=== PATIENT | male | born 1955 | race Caucasian/White ===

== ENCOUNTER 2022-03-18 18:49 | Emergency (ER) | payer BC, SELFPAY ==
--- NOTE | ~2022-03-18 | XR_ITS ---
XR foot RT min 3V 03/18/2022 19:38 INDICATION: Erythematous second toe. PROCEDURE: 4 views right foot COMPARISON: No prior studies for comparison. FINDINGS: Fracture, dislocation or subluxation is not identified. There is a degenerative calcaneal e nthesophyte. There is soft tissue swelling of the second toe. No foreign bodies are identified. IMPRESSION: 1: NO ACUTE BONE OR JOINT ABNORMALITY IDENTIFIED. Reviewed, dictated and finalized at location A.
[2022-03-18 18:51] VITALS: BP 157/112; PULSE 112; RESP 18; TEMP 36.5; O2SAT 99
--- NOTE | 2022-03-18 19:19 | ED.LOWEXIN ---
HPI - Extremity Injury (Lower) General Chief Complaint: Extremity Injury, Lower Stated Complaint: sore toe Time Seen by Provider: 03/18/22 18:52 History of Present Illness HPI Narrative: 66-year-old male history of diabetes presents to the emergency room for evaluation of a red swollen toe to his left foot. Patient states that he had a scab to the tip of his toe, and his attempted to remove it with a pumice stone. This created a small wound and noticed redness and pain to the tip of the toe this morning. He states over the course of the day the entire toe became red and swollen and painful. Patient states concern for diabetic toe. Has a follow-up scheduled with the director physical therapy next week. Related Data Allergies Allergy/AdvReac Type Severity Reaction Status Date / Time tizanidine Allergy Severe DROPPED BP Verified 06/06/19 08:56 Review of Systems Review of Systems: CONSTITUTIONAL: Denies fever, chills, or sweats. EYES: Denies visual changes, redness, or discharge. ENT: Denies rhinorrhea, congestion, sore throat, or otalgia. CARDIOVASCULAR: Denies chest pain, palpitations, or edema. RESPIRATORY: Denies cough or dyspnea. GASTROINTESTINAL: Denies abdominal pain, nausea, vomiting, or diarrhea. GENITOURINARY: Denies dysuria or hematuria. SKIN: Swelling, erythema, tenderness to left second toe MUSCULOSKELETAL: Denies back pain, joint pain, or myalgia. NEUROLOGIC: Denies headache, numbness, dizziness, or weakness. PSYCHIATRIC: Denies anxiety or depression. [facility] Family History Family History Father Family history of congestive heart failure Other Cerebrovascular accident Diabetes mellitus Social History Social History Smoking status: Never smoker Alcohol intake: current Exam Narrative: GENERAL: Well-appearing, well-nourished, no physical limitations, and in no acute distress. HEAD: Normocephalic, atraumatic. EYES: Conjunctivae normal, PERRLA and EOMI. CHEST: Clear to auscultation. No respiratory distress. No wheezes rales or rhonchi. No tenderness. HEART: Regular rate and rhythm. No murmur heard. Normal peripheral pulses. EXTREMITIES: Normal range of motion. No edema. No clubbing or cyanosis SKIN: Left second toe: Erythema, swelling, tenderness to touch to the entire toe. Neurovascular is intact NEURO: No focal deficits. Alert and oriented x3. MAEW. CN's II-XI intact bilaterally, normal gait PSYCH: Cooperative. Normal mood and affect. Course Vital Signs Vital signs: Vital Signs Temperature 36.5 C 03/18/22 18:51 Pulse Rate 112 H 03/18/22 18:51 Respiratory Rate 18 03/18/22 18:51 Blood Pressure 157/112 H 03/18/22 18:51 Pulse Oximetry 99 03/18/22 18:51 Oxygen Delivery Room Air 03/18/22 18:51 Temperature 36.5 C 03/18/22 18:51 Pulse Rate 82 03/18/22 20:30 Respiratory Rate 16 03/18/22 20:30 Blood Pressure 149/98 H 03/18/22 20:30 Pulse Oximetry 97 03/18/22 20:30 Oxygen Delivery Room Air 03/18/22 18:51 MDM - Extremity Injury (Lower) Lab Data Attestation: I reviewed the patient's lab results. Result diagrams: 03/18/22 19:28 03/18/22 19:28 Labs: Lab Results 03/18/22 03/18/22 03/18/22 Range/Units 19:28 19:28 19:28 WBC 7.6 (4.5-10.0) K/mm3 RBC 4.52 L (4.6-6.20) M/mm3 Hgb 12.4 L (14.0-18.0) g/dL Hct 37.5 L (42.0-52.0) % MCV 83.0 (80-100) fl MCH 27.4 (26-34) pg MCHC 33.1 (32-36) g/dl RDW 14.6 H (11.5-14.5) % Plt Count 251 (150-375) k/mm3 MPV 8.5 (7.4-10.4) fl Immature Gran % (Auto) 0.3 (0-0.5) % Neut % (Auto) 74.7 H (45.5-73.1) % Lymph % (Auto) 14.6 L (18.3-44.2) % [place] % (Auto) 10.0 H (2.6-8.5) % Eos % (Auto) 0.0 (0-4.4) % Baso % (Auto) 0.4 (0.2-1.2) % Lymph # (Auto) 1.11 (0.9-3.2) K/mm3 [place] # (Auto) 0.8 H (0.1-0.6) K/mm3 Eos #
[2022-03-18 19:34] LABS: Basophils Percent Auto 0.4 % (0.2-1.2); Hematocrit 37.5 % (42.0-52.0); Hemoglobin 12.4 g/dL (14.0-18.0); Immature Granulocyte Absolute 0.02 K/mm3 (0.00-0.031); Immature Granulocyte Percent A 0.3 % (0-0.5); Lymphocytes Absolute Auto 1.11 K/mm3 (0.9-3.2); Lymphocytes Percent Auto 14.6 % (18.3-44.2); Mean Corpuscular HGB Conc 33.1 g/dl (32-36); Mean Corpuscular Hemoglobin 27.4 pg (26-34); Mean Platelet Volume 8.5 fl (7.4-10.4); Monocytes Absolute Auto 0.8 K/mm3 (0.1-0.6); Neutrophils Absolute Auto 5.7 K/mm3 (1.3-6.7); Neutrophils Percent Auto 74.7 % (45.5-73.1); Platelet Count Result 251 k/mm3 (150-375); Red Blood Count 4.52 M/mm3 (4.6-6.20); Red Cell Distribution Width 14.6 % (11.5-14.5); White Blood Count 7.6 K/mm3 (4.5-10.0)
[2022-03-18 19:46] LABS: Alanine Aminotransferase 34 U/L (6-50); Albumin Level 4.6 g/dL (3.5-5.1); Alkaline Phosphatase 45 U/L (38-126); Anion Gap 12 mmol/L (8-16); Aspartate Amino Transferase 28 U/L (17-59); Bilirubin,Total 0.4 mg/dL (0.2-1.3); Blood Urea Nitrogen 28 mg/dL (9-20); Calcium 9.9 mg/dL (8.4-10.2); Carbon Dioxide 22 mmol/L (22-30); Chloride 108 mmol/L (98-107); Estimated CRCL calculation 68 ml/min; Estimated Glomerular Filt Rate > 60; Glucose 177 mg/dL (65-110); Potassium 4.1 mmol/L (3.4-5.0); Sodium 142 mmol/L (137-145)
[2022-03-18 19:47] LABS: Lactic Acid Reflex 1.5 mmol/L (0.7-2.0)
[2022-03-18] MEDS: cefTRIAXone 1 GM VIAL (20:24)
[2022-03-18] MEDS: LIDOCAINE HCL 1% PF 30 ML VIAL (20:24)
[2022-03-18 20:30] VITALS: BP 149/98; PULSE 82; RESP 16; O2SAT 97
== END 2022-03-18 20:31 | disposition home or self-care (01) ==
PROVIDERS: Emergency Provider Nurse Practitioner Family
DX: E11.621 Type 2 diabetes mellitus with foot ulcer (principal); L97.529 Non-pressure chronic ulcer of other part of left foot with unspecified severity; Z79.82 Long term (current) use of aspirin; Z79.4 Long term (current) use of insulin; Z79.84 Long term (current) use of oral hypoglycemic drugs
CPT/HCPCS: 36415; 73630; 80053; 83605; 85025; 96374; 99284; J0696

== ENCOUNTER 2022-03-20 09:52 | Inpatient (IN) | payer BC, MEDICARE, SELFPAY ==
--- NOTE | ~2022-03-20 | US_ITS ---
EXAMINATION: US venous doppler LE RT DATE: 03/21/2022 08:52 INDICATION: asymmetric swelling of RLE > LLE , right foot wound. TECHNIQUE: Grayscale images without and with compression and Doppler images of the right lower extrem ity veins were obtained. COMPARISON: None FINDINGS: The right common femoral vein, profunda (deep) femoral vein, femoral vein, popliteal vein, peroneal v ein, posterior tibial veins, gastrocnemius vein, and greater saphenous vein are patent. IMPRESSION: 1. Patent right lower extremity veins. No evidence of deep venous thrombosis. Reviewed, dictated and finalized at location K.
--- NOTE | ~2022-03-20 | MR_ITS ---
EXAMINATION: MR foot RT wo/w con DATE: 03/21/2022 08:14 INDICATION: Osteomalacia the right second toe TECHNIQUE: Magnetic resonance imaging (MRI) of the right forefoot was performed following the injecti on of 20 mL MultiHance intravenous contrast. Sequences included axial sagittal and coronal T1 FSE, ax ial and sagittal T1 FSE FS, axial and coronal T2 FSE FS, sagittal STIR, and axial, sagittal, and maine nal postcontrast sequences. COMPARISON: Radiographs 03/20/2022. FINDINGS: There is considerable subcutaneous inflammation and enhancement about the distal aspect of the second toe. 3 x 4 mm fluid collection in the deep soft tissues immediately adjacent to cortical b one along the posterior medial aspect of the distal phalange. No periosteal thickening or elevation. Although the cortical line sign is present in the radiographs, there is only mild abnormal marrow sig nal/enhancement, usually indicative of reactive marrow change. IMPRESSION: 1. Osteitis of the right second distal phalange, without overt or extensive osteomyelitis. 2. 3 x 4 mm fluid collection/early abscess at the posterior medial aspect of the distal second phalan ge. 3. Cellulitis of the distal second toe. Reviewed, dictated and finalized at location K. IMPRESSION: 1. Osteitis of the right second distal phalange, without overt or extensive ost eomyelitis. 2. 3 x 4 mm fluid collection/early abscess at the posterior medial aspect of th e distal second phalange. 3. Cellulitis of the distal second toe.
--- NOTE | ~2022-03-20 | XR_ITS ---
XR chest PICC line 03/25/2022 09:40 Indication: PICC line placement. Procedure: AP portable chest Comparison: No prior studies for comparison. Findings: Right subclavian PICC line tip in the SVC. Heart size normal. No focal air space disease, p ulmonary edema, pleural effusion or suspected pneumothorax. There is a left shoulder arthroplasty. Th ere are surgical changes overlying the neck. Impression: 1: No acute cardiopulmonary disease. Reviewed, dictated and finalized at location L. Impression: 1: No acute cardiopulmonary disease.
--- NOTE | ~2022-03-20 | CT_ITS ---
EXAMINATION: CT abdomen pelvis wo/w con DATE: 03/24/2022 08:22 INDICATION: Left renal mass seen on prior ultrasound. TECHNIQUE: Computed tomography (CT) of the abdomen and pelvis was performed without and with 100 mL O mnipaque-300 intravenous contrast. Automated exposure control and iterative reconstruction technique were employed. The dose-length product was 1756.31 mGy-cm. COMPARISON: Ultrasound dated 03/23/[address] dated 07/15/2008 FINDINGS: Bronchiectasis associated with linear atelectasis/scarring in the right lower lobe. A couple small ca lcified nodules in the right lower lobe and scattered hepatic and splenic calcific lesions consistent with old granulomatous disease. Heart size is normal. No pericardial or pleural effusion. Small slid ing-type hiatal hernia. Gallbladder, pancreas and right adrenal gland are normal. 9 mm left adrenal n odule statistically most likely to represent an adenoma. Bilateral low-attenuation nonenhancing renal cysts, the largest on the right measuring up to 1.9 cm and on the left measuring up to 1.8 cm. The c yst in the left kidney appear to correspond to the lesion of concern on the prior ultrasound. There i s an additional 8 mm hyperdense proteinaceous/hemorrhagic cyst at the periphery of the left kidney. B owels including the appendix are normal. Bladder is normal. Prostatomegaly measuring 5.2 x 3.4 cm. No free intraperitoneal gas or fluid. No pathologically enlarged abdominal or pelvic lymphadenopathy. C hronic mild anterior wedging at T10 and T11. Mild lumbar and mild to moderate lower thoracic spondylo sis. IMPRESSION: 1. Bilateral renal cysts which account for the lesions of concern seen on prior ultrasound. Reviewed, dictated and finalized at location A.
--- NOTE | ~2022-03-20 | XR_ITS ---
XR toe 2nd RT min 2V DATE: 03/20/2022 10:50 INDICATION: Distal second toe soft tissue wound for 3 days TECHNIQUE: 4 views COMPARISON: 03/18/2022 right foot FINDINGS: There is prominent soft tissue swelling of the second digit. There is bone destruction of t he tuft of the distal phalanx likely due to osteomyelitis. Proximal and distal interphalangeal joint spaces are preserved. No fracture or dislocation, periosteal reaction or bone destruction is noted otherwise. IMPRESSION: Prominent soft tissue swelling of the second digit Bone destruction of the tuft of the distal phalanx suggesting osteomyelitis of distal phalanx Reviewed, dictated and finalized at location A.
--- NOTE | ~2022-03-20 | US_ITS ---
EXAMINATION: US retroperitoneal comp DATE: 03/23/2022 10:28 INDICATION: Elevated creatinine. TECHNIQUE: Multiple ultrasound grayscale images of the kidneys were obtained. COMPARISON: Abdomen MRI 07/23/2008 FINDINGS: The right kidney measures 12.5 x 5.8 x 5.6 cm. The left kidney measures 11.3 x 5.8 x 4.6 cm. The kidn eys demonstrate normal parenchymal echogenicity. There are 1.8 cm and 1.9 cm hypoechoic masses in lef t kidney. There is no hydronephrosis. The bladder is normal. IMPRESSION: 1. Normal kidney sizes. No hydronephrosis. 2. Two left kidney masses measuring up to 1.9 cm, most likely cysts. Neoplasm cannot be excluded. Abd omen CT without and with contrast is recommended. Reviewed, dictated and finalized at location A. IMPRESSION: 1. Normal kidney sizes. No hydronephrosis. 2. Two left kidney masses measuring up to 1.9 cm, most likely cysts. Neoplasm c annot be excluded. Abdomen CT without and with contrast is recommended.
--- NOTE | ~2022-03-20 | US_ITS ---
EXAMINATION: US art doppler w press LE BI DATE: 03/21/2022 08:50 INDICATION: Right foot wound TECHNIQUE: Segmental pressures and plethysmographic and Doppler waveforms of the brachial and lower e xtremity arteries were obtained. COMPARISON: None. FINDINGS: Right and left brachial artery pressures of 143 mm Hg and 150 mm Hg, respectively, are concordant (no rmal difference <= 30 mmHg). The right ankle-brachial index (JENNIE) is 0.96 (normal >= 0.9-1). The right great toe-brachial index (T BI) is 0.78 (normal >= 0.6-0.8). Arterial waveforms are biphasic with brisk systolic upstrokes throug hout the arteries of the right lower limb. The left JENNIE is 0.91. The left TBI is 0.62. Arterial waveforms are triphasic at the left superficial femoral artery and biphasic in the remaining arteries of the left lower limb with brisk systolic upst rokes throughout. IMPRESSION: 1. No significant arterial occlusive disease to the right lower limb with normal right JENNIE and TBI. 2. Borderline arterial occlusive disease to the left lower limb with left JENNIE and TBI at the lower li mits of normal. Reviewed, dictated and finalized at location A. IMPRESSION: 1. No significant arterial occlusive disease to the right lower limb with lluvia l right JENNIE and TBI. 2. Borderline arterial occlusive disease to the left lower limb with left JENNIE a nd TBI at the lower limits of normal.
[2022-03-20 09:56] VITALS: BP 153/57; PULSE 112; RESP 16; TEMP 36.5; O2SAT 99
[2022-03-20 11:08] LABS: Basophils Percent Auto 0.2 % (0.2-1.2); Hematocrit 36.7 % (42.0-52.0); Hemoglobin 11.9 g/dL (14.0-18.0); Immature Granulocyte Absolute 0.02 K/mm3 (0.00-0.031); Immature Granulocyte Percent A 0.2 % (0-0.5); Lymphocytes Absolute Auto 0.86 K/mm3 (0.9-3.2); Lymphocytes Percent Auto 10.7 % (18.3-44.2); Mean Corpuscular HGB Conc 32.4 g/dl (32-36); Mean Corpuscular Hemoglobin 27.4 pg (26-34); Mean Corpuscular Volume 84.4 fl (80-100); Mean Platelet Volume 8.8 fl (7.4-10.4); Monocytes Absolute Auto 0.7 K/mm3 (0.1-0.6); Monocytes Percent Auto 8.8 % (2.6-8.5); Neutrophils Absolute Auto 6.4 K/mm3 (1.3-6.7); Neutrophils Percent Auto 80.1 % (45.5-73.1); Platelet Count Result 239 k/mm3 (150-375); Red Blood Count 4.35 M/mm3 (4.6-6.20); Red Cell Distribution Width 14.5 % (11.5-14.5); White Blood Count 8.1 K/mm3 (4.5-10.0)
--- NOTE | 2022-03-20 11:16 | ED.WOUNDLAC ---
HPI - Wound/Laceration General Chief Complaint: Wound/Laceration <Neha Bell PA-C - Last Filed: 03/20/22 13:01> Stated Complaint: R FOOT DIABETIC ULCER <SANJU Trujillo Last Filed: 03/20/22 13:01> Time Seen by Provider: 03/20/22 10:37 <Neha Bell PA-C - Last Filed: 03/20/22 13:01> Source: patient <SANJU Trujillo Last Filed: 03/20/22 13:01> Mode of arrival: ambulatory <SANJU Trujillo Last Filed: 03/20/22 13:01> Limitations: no limitations <SANJU Trujillo Last Filed: 03/20/22 13:01> History of Present Illness HPI narrative: This is a 66 year old male that presents to the ER for a wound to the right second toe. Reports history of diabetes mellitus. Reports he noted a callus to the end of the toe a couple of weeks ago. His used a device she had to debride the callus a little bit. Over the last couple of days he noted his toe started to become red and swollen. He was seen in the ED 2 days ago and started on cephalexin and Bactrim. Since he has had worsening redness and swelling which is now going into his foot. Denies fevers. <SANJU Trujillo Last Filed: 03/20/22 13:01> Related Data Home Medications: Home Medications Medication Instructions Recorded Confirmed Rovuvastin 10 mg PO HS 03/20/22 03/20/22 alpha lipoic acid 300 mg capsule 300 mg PO BID 03/20/22 03/20/22 amlodipine 10 mg tablet See Rx Instructions .Route .COMPLEX 03/20/22 03/20/22 aspirin 81 mg chewable tablet 81 mg PO DAILY 03/20/22 03/20/22 cholecalciferol (vitamin D3) 125 5,000 unit PO DAILY 03/20/22 03/20/22 mcg (5,000 unit) tablet (Vitamin D3) fenofibrate 160 mg tablet See Rx Instructions .Route .COMPLEX 03/20/22 03/20/22 hydrochlorothiazide 25 mg tablet 25 mg PO DAILY 03/20/22 03/20/22 insulin glargine 100 unit/mL 65 unit subcut DAILY 03/20/22 03/20/22 subcutaneous cartridge levothyroxine 200 mcg tablet 200 mcg PO DAILY 03/20/22 03/20/22 (Euthyrox) losartan 100 mg tablet 100 mg PO HS 03/20/22 03/20/22 metformin 1,000 mg tablet,extended 1,000 mg PO BID 03/20/22 03/20/22 release 24hr metoprolol succinate 200 mg 250 mg PO DAILY 03/20/22 03/20/22 tablet,extended release 24 hr multivitamin with minerals-folic 1 tablet PO DAILY 03/20/22 03/20/22 acid 0.4 mg tablet semaglutide 1 mg/dose (2 mg/1.5 1 mg subcut WEEKLY 03/20/22 03/20/22 mL) subcutaneous pen injector (Ozempic) vitamin B complex 1 cap PO DAILY 03/20/22 03/20/22 <Neha Bell PA-C - Last Filed: 03/20/22 13:01> Allergies/Adverse Reactions: Allergies Allergy/AdvReac Type Severity Reaction Status Date / Time tizanidine Allergy Severe DROPPED BP Verified 03/20/22 17:36 <Neha Bell PA-C - Last Filed: 03/20/22 13:01> Review of Systems Review of Systems: CONSTITUTIONAL: Denies fever SKIN: Reports redness and swelling <Neha Bell PA-C - Last Filed: 03/20/22 13:01> All systems reviewed & are unremarkable except as noted in HPI and below <Neha Bell PA-C - Last Filed: 03/20/22 13:01> [facility] Past Medical History Medical History: Medical History (Updated 03/20/22 @ 17:41 by Sofie Solano MD) History of diabetes mellitus History of hyperlipidemia History of hypertension Papillary thyroid carcinoma <Neha Bell PA-C - Last Filed: 03/20/22 13:01> Surgical History Surgical History: Surgical History (Updated 03/20/22 @ 17:41 by Sofie Solano MD) H/O left inguinal hernia repair H/O right inguinal hernia repair H/O shoulder replacement H/O umbilical hernia repair Hx of total thyroidectomy with radical neck dissection <Neha Bell PA-C - Last Filed: 03/20/22 13:01> Family History Family History: Family History Father Family history of congestive heart failure Other Cerebrovascular accident Diabetes mellitus <Neha Bell PA-C - Last Filed: 07
[2022-03-20 11:19] LABS: Alanine Aminotransferase 28 U/L (6-50); Albumin Level 4.4 g/dL (3.5-5.1); Alkaline Phosphatase 39 U/L (38-126); Anion Gap 10 mmol/L (8-16); Aspartate Amino Transferase 28 U/L (17-59); Bilirubin,Total 0.4 mg/dL (0.2-1.3); Blood Urea Nitrogen 25 mg/dL (9-20); CRP 6.4 mg/dL (<1.0); Calcium 9.3 mg/dL (8.4-10.2); Carbon Dioxide 25 mmol/L (22-30); Chloride 104 mmol/L (98-107); Estimated CRCL calculation 62 ml/min; Estimated Glomerular Filt Rate 55; Glucose 224 mg/dL (65-110); Potassium 4.4 mmol/L (3.4-5.0); Sodium 139 mmol/L (137-145)
[2022-03-20 11:43] LABS: Erythrocyte Sedimentation Rate 104 mm/hr (0-20)
[2022-03-20 11:55] LABS: Lactic Acid Reflex 2.3 mmol/L (0.7-2.0)
[2022-03-20] MEDS: SODIUM CHLORIDE 0.9% IV 1,000 ML 999 ML IV CONT (12:08)
[2022-03-20] MEDS: MUPIROCIN 2% OINT 22 GM TUBE 1 APPLIC TOPICAL (13:37)
--- NOTE | 2022-03-20 13:46 | PC.NURSE ---
blood glucose was 196 at 1345
[2022-03-20 13:48] LABS: Glucose Point of Care 196 mg/dl (65-105)
[2022-03-20 14:40] LABS: Reflex Lactic Acid Yes or No Add Lactic
--- NOTE | 2022-03-20 14:40 | ADMGEN ---
This patient, Naman Roberts, was admitted to Medical Room 258-. Patient/family oriented to hospital policies and general routines including ID bracelet, bed and alarms, visiting hours, pain management, procedures, bathroom and other care routines, personal items, smoking policy, room service/diet, and visiting hours. Information on how to activate the Rapid Response Team has been discussed. Patient/Family are encouraged to report perceived risks to care and to ask questions if they do not understand what they are told or what they should do.
[2022-03-20 16:32] LABS: Glucose Point of Care 154 mg/dl (65-105)
[2022-03-20 16:57] LABS: Lactic Acid 1.4 mmol/L (0.7-2.0)
--- NOTE | 2022-03-20 17:20 | PM.IMHP ---
H&P: HPI History of Present Illness Date/Time: 03/20/22 17:20 Chief Complaint: Toe infeciton Narrative: 66M with a past medical history of diabetes c/w peripheral neuropathy, hypertension, hyperlipidemia, Papillary Thyroid Carcinoma s/p radical neck dissection w/ total thyroidectomy 2018 who presented to the ED due to worsening redness and swelling of the 2nd toe of the right foot. Patient initially noticed redness on the tip of the 2nd toe of the right foot on , March 18, 2022. He called the line person he had scheduled an appointment to establish care and was told he need to go to the emergency department for evaluation. Patient says he came to the emergency room at [facility] that day had a xray of the foot showing soft tissue swelling of the 2nd toe and was given cephalexin and bactrim ds with instruction to return should the redness worsen or spread to the foot. For the next couple of days the patient says he elevated his foot and took the antibiotics as prescribed. He said it appeared to be improving. Then this morning he got up and took a shower. After showering while drying off he noticed the tip of his toe was black and blue looking and there was blood on the towel from where he cleaned the toe. The only possible injury to the toe was three weeks ago when his used a tool to remove a callus on the bottom of that toe. Other than that the patient denies any trauma or injury to the toe. Denies having had nonhealing wounds on his lower extremities and feet in the past. Has had neuropathy in his feet for about 3-4 years and says his doctor has been monitoring it. Denies having had any pain in the foot or toe. Reports noticing increased swelling in the right foot and leg compared to the left. Denies fever, chills, cough, nausea, vomiting, abdominal pain, melena, hematochezia, stranguria, dysuria. Reports some bleeding from the wound today and had drainage on . Reports being diagnosed with diabetes with routine blood work by the primary care physician a few years ago and says his a1c has never been above 8.0. Reports last a1c was 6.3 about a month and a half ago checked by the primary care physician at [facility] in [place], [place]. In the ED, lactic acid 2.3-->1.4, ESR 104, CRP 6.4, XR of right 2nd toe showing bone destruction of the tuft of the distal phalix with surrounding soft tissue swelling concerning for osteomyelitis. BCX x2 sent. Imipenem and Vancomycin given. Dr. Hoover - General Surgery consulted. Review of Systems Constitutional: Constitutional: Denies chills ENT: Reports nasal discharge (chronic ) Respiratory: Respiratory: Denies cough Gastrointestinal: Gastrointestinal: Denies abdominal pain, Denies melena, Denies hematochezia, Denies constipation, Denies diarrhea, Denies nausea and Denies vomiting Genitourinary: Genitourinary: Denies dysuria and Denies urinary hesitancy Musculoskeletal: Musculoskeletal: Denies arthralgias Integumentary/Breasts: Skin/Breast: Reports erythema, Denies rash, Denies skin pain and Reports wounds Allergic/Immunologic: Allergic/Immunologic: Denies seasonal rhinorrhea [facility] Past Medical History Medical History (Updated 03/20/22 @ 18:36 by Sofie Solano MD) Blood tests for routine general physical examination History of diabetes mellitus (~09/2017) History of hyperlipidemia History of hypertension Papillary thyroid carcinoma Surgical History Surgical History (Updated 03/20/22 @ 17:41 by Sofie Solano MD) H/O left inguinal hernia repair H/O right inguinal hernia repair H/O shoulder replacement H/O umbilical hernia repair Hx of total thyroidectomy with radical neck dissection Family History Family History Father Family history of congestive heart failure Other Cerebrovascular accident Diabetes mellitus Social History Social History (Updated 03/20/22 @ 17:42 by Sofie Palencia
[2022-03-20 19:27] LABS: Immature Reticulocyte Fraction 16.8 % (3.0-15.9); Reticulocyte Hemoglobin Conten 27.8 pg (28.2-35.7); Reticulocyte Percent 1.87 % (0.7-4.3); Reticulocytes Absolute 0.08 B/L (32.2-175.7)
[2022-03-20 19:36] LABS: Glucose Point of Care 179 mg/dl (65-105)
[2022-03-20 19:39] LABS: Hemoglobin A1C 6.7 % (<5.7)
[2022-03-20 19:45] VITALS: BP 156/71; PULSE 99; RESP 17; TEMP 36.3; O2SAT 99
[2022-03-20 19:50] LABS: Iron 35 ug/dL (49-181)
[2022-03-20 20:00] LABS: Percent Iron Saturation 8 % (20-50)
[2022-03-20 20:19] VITALS: PULSE 80
[2022-03-20] MEDS: METOPROLOL SUCCINATE EXT REL 100 MG TABCR 200 MG PO (20:19)
[2022-03-20 20:20] VITALS: PULSE 80
[2022-03-20] MEDS: METOPROLOL SUCCINATE EXT REL 50 MG TABCR PO (20:20)
[2022-03-20] MEDS: ROSUVASTATIN 10 MG TABLET PO (20:21)
[2022-03-20] MEDS: LOSARTAN POTASSIUM 100 MG TABLET PO (20:21)
[2022-03-20] MEDS: amLODIPine BESYLATE 5 MG TABLET 10 MG BY MOUTH (20:23)
[2022-03-20] MEDS: NONFORMULARY NUTRITIONAL SUPPLEMENT 1 EACH XX (20:24)
[2022-03-20] MEDS: ENOXAPARIN 40 MG/0.4 ML SYRINGE SUB-Q (20:24)
[2022-03-20 20:50] LABS: Folic Acid > 20.0 ng/mL (2.76->20)
[2022-03-20] MEDS: MELATONIN 5 MG TABLET PO (22:39)
[2022-03-20 23:28] VITALS: BP 103/49; PULSE 78; RESP 18; TEMP 36.6; O2SAT 97
[2022-03-21] VITALS (8 sets, daily range): BP systolic 119–135; BP diastolic 47–62; PULSE 71–78; RESP 17–18; TEMP 36.4–36.7; O2SAT 97–100
[2022-03-21 05:15] LABS: Basophils Percent Auto 0.6 % (0.2-1.2); Eosinophils Percent Auto 0.2 % (0-4.4); Hematocrit 32.5 % (42.0-52.0); Hemoglobin 10.7 g/dL (14.0-18.0); Immature Granulocyte Absolute 0.02 K/mm3 (0.00-0.031); Immature Granulocyte Percent A 0.4 % (0-0.5); Lymphocytes Absolute Auto 1.03 K/mm3 (0.9-3.2); Lymphocytes Percent Auto 20.3 % (18.3-44.2); Mean Corpuscular HGB Conc 32.9 g/dl (32-36); Mean Corpuscular Hemoglobin 27.4 pg (26-34); Mean Corpuscular Volume 83.3 fl (80-100); Mean Platelet Volume 8.7 fl (7.4-10.4); Monocytes Absolute Auto 0.5 K/mm3 (0.1-0.6); Monocytes Percent Auto 10.7 % (2.6-8.5); Neutrophils Absolute Auto 3.4 K/mm3 (1.3-6.7); Neutrophils Percent Auto 67.8 % (45.5-73.1); Platelet Count Result 237 k/mm3 (150-375); Red Cell Distribution Width 14.4 % (11.5-14.5); White Blood Count 5.1 K/mm3 (4.5-10.0)
[2022-03-21 05:27] LABS: Anion Gap 8 mmol/L (8-16); Blood Urea Nitrogen 22 mg/dL (9-20); Calcium 8.6 mg/dL (8.4-10.2); Carbon Dioxide 23 mmol/L (22-30); Chloride 107 mmol/L (98-107); Estimated CRCL calculation 65 ml/min; Estimated Glomerular Filt Rate > 60; Glucose 132 mg/dL (65-110); Potassium 3.8 mmol/L (3.4-5.0); Sodium 138 mmol/L (137-145)
[2022-03-21 05:55] LABS: Erythrocyte Sedimentation Rate 129 mm/hr (0-20)
[2022-03-21] MEDS: LEVOTHYROXINE SODIUM 100 MCG TABLET 200 MCG PO (06:19)
--- NOTE | 2022-03-21 07:20 | PM.IMPN ---
Progress Note: A&P Assessment and Plan (1) Open toe wound: Code(s): S91.109A - Unspecified open wound of unspecified toe(s) without damage to nail, initial encounter Status: Acute Assessment and Plan: Hx DM w/ neuropathy. No hx of nonhealing ulcers in the past, so unsure if there could be gangrene. No signs of acute limb ischemia. ESR & CRP elevated. Afebrile but tachycardic on presentation. Lactic acid elevated to 2.3-->1LNS--> down to 1.4. XR right 2nd toe w/ destruction of tuft of distal phalanx with surrounding soft tissue swelling concerning for osteomyelitis. No crepitus on exam & LRINEC score 2 points, less likely NSTI. Could have some surrounding cellulitis as well. Also recent abx use of cephalexin and bactrim ds without improvement. MRI and venous doppler completed w/ read pending. CRP is down but ESR increased. A1C not significantly elevated. Patient appears to be clinically stable. -Continue Imipenem 500 mg q6h -Pharmacy to dose vancomycin -Appreciate recommendations from Surgery -Wound care consult (2) Anemia: Code(s): D64.9 - Anemia, unspecified Status: Acute Assessment and Plan: Vitamin b12 and folate are normal. Iron studies consistent with iron deficiency anemia. -Ferrous gluconate 324 mg po q48h (3) Decreased GFR: Code(s): R94.4 - Abnormal results of kidney function studies Status: Acute Assessment and Plan: Baseline creatinine appears to be ~1.00 per record review via historical link. Creatinine 1.1 today. -Urine sodium, creatinine and urea ordered (4) History of thyroid cancer: Code(s): Z85.850 - Personal history of malignant neoplasm of thyroid Status: Acute Assessment and Plan: 2019 s/p thyroidectomy w/ radical neck dissection with acquired hypothyroidism. Takes levothyroxine at home. Continue. (5) History of diabetes mellitus: Onset Date: ~09/2017 Code(s): Z86.39 - Personal history of other endocrine, nutritional and metabolic disease Status: Acute Assessment and Plan: Reports last a1c 6.3 but significant hyperglycemia on presentation to ED but this can be acutely worsened in infection. a1c 6.7. -Continue home glargine 65 units qhs for now -Hold home metformin and semaglutide for now -High dose SSI w/ POC glucose TIDWM (6) History of hyperlipidemia: Code(s): Z86.39 - Personal history of other endocrine, nutritional and metabolic disease Status: Acute Assessment and Plan: Takes rosuvastatin at home. Continue. (7) History of hypertension: Code(s): Z86.79 - Personal history of other diseases of the circulatory system Status: Acute Assessment and Plan: On losartan and amlodipine at home. Controlled. Will monitor. (8) Diabetes mellitus: Qualifiers: Diabetes mellitus complication detail: with foot ulcer Diabetes mellitus complication status: with skin complications Diabetes mellitus terminal worker insulin use: with skilled nursing use Diabetes mellitus type: type 2 Qualified Code(s): E11.621 - Type 2 diabetes mellitus with foot ulcer; L97.509 - Non-pressure chronic ulcer of other part of unspecified foot with unspecified severity; Z79.4 - terminal computer operator (current) use of insulin Code(s): E11.9 - Type 2 diabetes mellitus without complications Status: Acute Assessment and Plan: Continue losartan, rosuvastatin and home glargine dose. Hold metformin and semaglutide. A1C 6.7. -POC glucose check TIDWM -High dose SSI -Glargine 65 units qhs -[facility] diet Additional Plan Full Code is primary contact Enoxaparin for DVT prophylaxis Subjective Date/time seen: 03/21/22 07:20 Patient says it is easier to walk on his right foot with the dressing in place. Denies pain, fever, chills. Review of Systems Musculoskeletal: Musculoskeletal: Denies arthralgias Exam Narrative: GENERAL: sabrina PETIT
[2022-03-21 09:03] LABS: Glucose Point of Care 162 mg/dl (65-105)
[2022-03-21] MEDS: ASPIRIN 81 MG CHEWABLE TABLET PO (09:04)
[2022-03-21] MEDS: hydroCHLOROthiazide 25 MG TABLET PO (09:04)
[2022-03-21] MEDS: THERAPEUTIC MULTIVITAMINS/MINERALS TAB (*BKC) 1 TABLET PO (09:04)
[2022-03-21] MEDS: CHOLECALCIFEROL 1,000 UNITS TABLET 5000 UNITS PO (09:04)
[2022-03-21] MEDS: VITAMIN B COMPLEX CAPSULE 1 CAP PO (09:05)
[2022-03-21] MEDS: FERROUS GLUCONATE 324 MG TABLET PO (09:05)
[2022-03-21] MEDS: INSULIN GLARGINE (*BKC) 100 UNITS/ML 65 UNITS SUB-Q (09:11)
[2022-03-21 11:00] LABS: Appearance Urine Clear (Clear); Bilirubin Urine Negative (Negative); Blood Urine Negative (Negative); Color Urine Yellow (Yellow); Glucose Urine UA 1+ mg/dL (Negative); Ketones Urine Negative (Negative); Leukocyte Esterase Ur Negative LEU/UL (NEGATIVE); Nitrate Urine Negative (Negative); Protein Urine Negative (Negative); Specific Grav Ur 1.015 (1.001-1.035); Urobilinogen Urine 0.2 mg/dL (<2.0)
[2022-03-21 11:06] LABS: Add Urine Microscopic? YES; Mucus Urine Rare /lpf; RBC Urine 0-2 /hpf (0-2); WBC Urine 0-3 /hpf (0-3)
[2022-03-21 11:06] LABS: Creatinine Urine 63.9 mg/dL; Urea Random Urine 559 MG/DL
[2022-03-21 11:07] LABS: Sodium Urine Random 79 meq/L
[2022-03-21 11:11] LABS: MALB Creatinine Ratio 32.6 mg/g (0-30); Microalbumin Urine Random 20.8 mg/L (0-16.7)
[2022-03-21 11:38] LABS: Glucose Point of Care 219 mg/dl (65-105)
[2022-03-21] MEDS: INSULIN ASPART (*BKC) 100 UNITS/ML SUB-Q (11:48)
[2022-03-21] MEDS: SILVERGEL (ELTA) 45 ML 1 APPLIC TOPICAL (15:13)
--- NOTE | 2022-03-21 16:07 | PM.CNGS ---
Assessment and Plan Assessment and plan (1) Open toe wound: Code(s): S91.109A - Unspecified open wound of unspecified toe(s) without damage to nail, initial encounter Status: Acute Assessment and Plan: After review I recommended the patient have a bedside debridement if he did not have significant sensation on his right 2nd toe. He had loose blistered skin with some purulent fluid drainage. No deep wounds were identified. I recommend continued IV antibiotics per the diabetic protocol for his foot wound. I recommend that the wound care nurses see him and help with dressing changes. We are awaiting an MRI report on his foot which should help us determine whether not there is actually osteomyelitis there. Have told the patient if there is osteomyelitis may consider seeing if Dr. Kirk would see the patient since there may be a way to salvage more of his toe or consider actual antibiotic treatment and follow-up long-term with IV antibiotics for 6-8 weeks since I do not find any tract down to the bone from the current wound on his 2nd toe. (2) Anemia: Code(s): D64.9 - Anemia, unspecified Status: Acute Assessment and Plan: As per hospitalists may need iron (3) History of thyroid cancer: Code(s): Z85.850 - Personal history of malignant neoplasm of thyroid Status: Acute Assessment and Plan: this was in 2018 and patient apparently had a thyroidectomy or partial thyroidectomy at site cancer center at [facility] in [place]. Do not know what type this was. Patient is on thyroid put replacement therapy. (4) History of diabetes mellitus: Onset Date: ~09/2017 Code(s): Z86.39 - Personal history of other endocrine, nutritional and metabolic disease Status: Acute Assessment and Plan: Continue to maximize ideal treatment for this while hospitalized and then coached him on how to do it at home. Probably be elizalde to check and see if he was keeping his blood sugars well in the normal range at home also and calcium further if he is not. (5) History of hyperlipidemia: Code(s): Z86.39 - Personal history of other endocrine, nutritional and metabolic disease Status: Acute Assessment and Plan: Continue current home medications and as per hospitalist. (6) History of hypertension: Code(s): Z86.79 - Personal history of other diseases of the circulatory system Status: Acute Assessment and Plan: Continue current home medications and as per hospitalist. (7) Diabetes mellitus: Qualifiers: Diabetes mellitus complication detail: with foot ulcer Diabetes mellitus complication status: with skin complications Diabetes mellitus terminal supervisor insulin use: with terminal supervisor use Diabetes mellitus type: type 2 Qualified Code(s): E11.621 - Type 2 diabetes mellitus with foot ulcer; L97.509 - Non-pressure chronic ulcer of other part of unspecified foot with unspecified severity; Z79.4 - terminal clerk (current) use of insulin Code(s): E11.9 - Type 2 diabetes mellitus without complications Status: Acute Assessment and Plan: Continue current home medications and as per hospitalist. History of Present Illness Consult details Consult date: 03/21/22 Reason for consult: wound care Requesting physician: Sofie Solano MD Narrative: This patient initially noticed redness on the tip of the 2nd toe of the right foot on , March 18, 2022.? He called the phytopathology teacher he had scheduled an appointment to establish care and was told he needed to go to the emergency department for evaluation.? Patient says he came to the emergency room at [facility] that day had a xray of the foot showing soft tissue swelling of the 2nd toe and was given cephalexin and Bactrim DS with instruction to return should the redness worsen or spread to the foot.? For the next couple of days the patient says he elevated his foot and took the
[2022-03-21 16:33] LABS: Glucose Point of Care 118 mg/dl (65-105)
[2022-03-21] MEDS: ENOXAPARIN 40 MG/0.4 ML SYRINGE SUB-Q (16:51)
[2022-03-21] MEDS: FENOFIBRATE 160 MG TABLET BY MOUTH (16:51)
[2022-03-21] MEDS: amLODIPine BESYLATE 5 MG TABLET 10 MG BY MOUTH (16:52)
[2022-03-21] MEDS: METOPROLOL SUCCINATE EXT REL 100 MG TABCR 200 MG PO (17:46)
[2022-03-21] MEDS: METOPROLOL SUCCINATE EXT REL 50 MG TABCR PO (17:47)
--- NOTE | 2022-03-21 19:36 | P.PCNBED_ITS ---
Procedures Abscess I/D Site: foot ( right foot 2nd toe distal phalanx ) Side (if applicable): right ( entire and except the nail of the right 2nd toe.) Sedation/analgesia: none ( patient has some of neuropathy so did pain with the procedure.) Technique: other ( blister unroofed with sterile suture scissors.) Amount of fluid (mL): 3.0 Irrigation: No Packing used?: none Complications: bleeding ( minor, controlled with pressure) Comments: Pre-op Diagnosis: Blistering and cellulitis the right 2nd toe Postop diagnosis same Procedure : excisional debridement skin getting to subcutaneous tissue 2nd right toe. I had the patient lay supine in his bed and brought the bed up to my level. We also elevated the foot of his bed slightly. We removed the old dressing which had some brownish red drainage on it near the toe. Inspection of the right 2nd toe reveals a whitish blistered skin that seems to be a little loose on both the medial and lateral sides and at its base. The toe is slightly hammered inferiorly. After cleansing with Betadine I carefully incised along the blistered skin and removed it exposing the underlying pink healthy skin. I then carefully squeezed the entire toe warning the patient that it may hurt. I was not able to express any maggi pus from within the toe itself and I could not pr obe down to the bone along any of the sites where I incised and removed blistered skin. EBL < 1 cc Patient tolerated the procedure well DJ
[2022-03-21] MEDS: LOSARTAN POTASSIUM 100 MG TABLET PO (21:18)
[2022-03-21] MEDS: ROSUVASTATIN 10 MG TABLET PO (21:18)
[2022-03-21] MEDS: MELATONIN 5 MG TABLET PO (21:18)
[2022-03-21 22:06] LABS: Glucose Point of Care 125 mg/dl (65-105)
[2022-03-22] VITALS (9 sets, daily range): BP systolic 106–130; BP diastolic 53–70; PULSE 71–86; RESP 12–18; TEMP 36–36.5; O2SAT 97–100
[2022-03-22 05:27] LABS: Basophils Percent Auto 0.6 % (0.2-1.2); Hematocrit 32.3 % (42.0-52.0); Hemoglobin 10.8 g/dL (14.0-18.0); Immature Granulocyte Absolute 0.02 K/mm3 (0.00-0.031); Immature Granulocyte Percent A 0.4 % (0-0.5); Lymphocytes Absolute Auto 0.98 K/mm3 (0.9-3.2); Lymphocytes Percent Auto 19.6 % (18.3-44.2); Mean Corpuscular HGB Conc 33.4 g/dl (32-36); Mean Corpuscular Hemoglobin 27.8 pg (26-34); Mean Corpuscular Volume 83.2 fl (80-100); Mean Platelet Volume 8.8 fl (7.4-10.4); Monocytes Absolute Auto 0.6 K/mm3 (0.1-0.6); Neutrophils Absolute Auto 3.4 K/mm3 (1.3-6.7); Neutrophils Percent Auto 68.4 % (45.5-73.1); Platelet Count Result 251 k/mm3 (150-375); Red Blood Count 3.88 M/mm3 (4.6-6.20); Red Cell Distribution Width 14.2 % (11.5-14.5)
[2022-03-22 05:42] LABS: Anion Gap 5 mmol/L (8-16); Blood Urea Nitrogen 19 mg/dL (9-20); CRP 1.9 mg/dL (<1.0); Calcium 8.9 mg/dL (8.4-10.2); Carbon Dioxide 26 mmol/L (22-30); Chloride 108 mmol/L (98-107); Estimated CRCL calculation 60 ml/min; Estimated Glomerular Filt Rate > 60; Glucose 110 mg/dL (65-110); Potassium 3.6 mmol/L (3.4-5.0); Sodium 139 mmol/L (137-145)
[2022-03-22] MEDS: LEVOTHYROXINE SODIUM 100 MCG TABLET 200 MCG PO (06:17)
--- NOTE | 2022-03-22 07:22 | PM.IMPN ---
Progress Note: A&P Assessment and Plan (1) Open toe wound: Code(s): S91.109A - Unspecified open wound of unspecified toe(s) without damage to nail, initial encounter Status: Acute Assessment and Plan: Hx DM w/ neuropathy. No hx of nonhealing ulcers in the past, so unsure if there could be gangrene. No signs of acute limb ischemia. ESR & CRP elevated. Afebrile but tachycardic on presentation. Lactic acid elevated to 2.3-->1LNS--> down to 1.4. XR right 2nd toe w/ destruction of tuft of distal phalanx with surrounding soft tissue swelling concerning for osteomyelitis. No crepitus on exam & LRINEC score 2 points, less likely NSTI. Could have some surrounding cellulitis as well. Also recent abx use of cephalexin and bactrim ds without improvement. A1C not significantly elevated. MRI showing no osteomyelitis. Wound culture growing GPC. Patient appears to be clinically stable. -Continue Imipenem 500 mg q6h -Pharmacy to dose vancomycin -Appreciate recommendations from Surgery -Wound care consult (2) Anemia: Code(s): D64.9 - Anemia, unspecified Status: Acute Assessment and Plan: Vitamin b12 and folate are normal. Iron studies consistent with iron deficiency anemia. -Ferrous gluconate 324 mg po q48h (3) Decreased GFR: Code(s): R94.4 - Abnormal results of kidney function studies Status: Acute Assessment and Plan: Baseline creatinine appears to be ~1.00 per record review via historical link. Creatinine 1.2. Fena intrinsic and microalbumin creatinine ratio elevated. -Renal ultrasound (4) History of thyroid cancer: Code(s): Z85.850 - Personal history of malignant neoplasm of thyroid Status: Acute Assessment and Plan: 2019 s/p thyroidectomy w/ radical neck dissection with acquired hypothyroidism. Takes levothyroxine at home. Continue. (5) History of diabetes mellitus: Onset Date: ~09/2017 Code(s): Z86.39 - Personal history of other endocrine, nutritional and metabolic disease Status: Acute Assessment and Plan: Reports last a1c 6.3 but significant hyperglycemia on presentation to ED but this can be acutely worsened in infection. a1c 6.7. -Continue home glargine 65 units qhs for now -Hold home metformin and semaglutide for now -High dose SSI w/ POC glucose TIDWM (6) History of hyperlipidemia: Code(s): Z86.39 - Personal history of other endocrine, nutritional and metabolic disease Status: Acute Assessment and Plan: Takes rosuvastatin at home. Continue. (7) History of hypertension: Code(s): Z86.79 - Personal history of other diseases of the circulatory system Status: Acute Assessment and Plan: On losartan and amlodipine at home. Controlled. Will monitor. (8) Diabetes mellitus: Qualifiers: Diabetes mellitus complication detail: with foot ulcer Diabetes mellitus complication status: with skin complications Diabetes mellitus long distance operator insulin use: with correction use Diabetes mellitus type: type 2 Qualified Code(s): E11.621 - Type 2 diabetes mellitus with foot ulcer; L97.509 - Non-pressure chronic ulcer of other part of unspecified foot with unspecified severity; Z79.4 - superintendent terminal (current) use of insulin Code(s): E11.9 - Type 2 diabetes mellitus without complications Status: Acute Assessment and Plan: Continue losartan, rosuvastatin and home glargine dose. Hold metformin and semaglutide. A1C 6.7. -POC glucose check TIDWM -High dose SSI -Glargine 65 units qhs -[facility] diet Additional Plan Full Code is primary contact Enoxaparin for DVT prophylaxis Subjective Date/time seen: 03/22/22 07:22 Patient denies pain in his right foot. Denies fever, chills. Review of Systems Integumentary/Breasts: Skin/Breast: Reports erythema and Reports wounds Exam Narrative: GENERAL: NAD, cooperative HEENT: Nor
[2022-03-22 07:50] LABS: Glucose Point of Care 111 mg/dl (65-105)
[2022-03-22] MEDS: ASPIRIN 81 MG CHEWABLE TABLET PO (08:47)
[2022-03-22] MEDS: CHOLECALCIFEROL 1,000 UNITS TABLET 5000 UNITS PO (08:47)
[2022-03-22] MEDS: hydroCHLOROthiazide 25 MG TABLET PO (08:48)
[2022-03-22] MEDS: VITAMIN B COMPLEX CAPSULE 1 CAP PO (08:48)
[2022-03-22] MEDS: THERAPEUTIC MULTIVITAMINS/MINERALS TAB (*BKC) 1 TABLET PO (08:48)
[2022-03-22] MEDS: SILVERGEL (ELTA) 45 ML 1 APPLIC TOPICAL (08:50)
[2022-03-22] MEDS: INSULIN GLARGINE (*BKC) 100 UNITS/ML 65 UNITS SUB-Q (08:51)
[2022-03-22 10:48] LABS: Erythrocyte Sedimentation Rate 86 mm/hr (0-20)
[2022-03-22 11:20] LABS: Glucose Point of Care 132 mg/dl (65-105)
--- NOTE | 2022-03-22 15:00 | PM.PNGS ---
Progress Note: A&P Assessment and Plan (1) Open toe wound: Code(s): S91.109A - Unspecified open wound of unspecified toe(s) without damage to nail, initial encounter Status: Acute Assessment and Plan: Infected right 2nd toe wound s/p bedside debridement. This does probe to bone. Wound care was consulted. Preliminary wound cultures showing growth of staphylococcus aureus. Plain films of the 2nd toe suggest bone destruction of the tuft of the distal phalanx suggesting osteomyelitis. MRI of right foot showed osteitis of the right 2nd distal phalanx with a 3x4 mm fluid collection at the posterior medial aspect of the distal second phalange with cellulitis of the distal second toe. I called the Radiologist to review the MRI and he does see evidence of osteomyelitis of the 2nd distal phalanx. ABIs showed no arterial occlusive disease to the right lower extremity and borderline low to the left lower extremity. Venous doppler negative for RLE DVT. Continue broad-spectrum IV antibiotics and local wound care with silver gel dressing changes. With the findings of osteomyelitis on the MRI, we will consult Orthopedic Surgery to evaluate the patient. (2) Diabetes mellitus: Qualifiers: Diabetes mellitus complication detail: with foot ulcer Diabetes mellitus complication status: with skin complications Diabetes mellitus mcfp insulin use: with ferry terminal agent use Diabetes mellitus type: type 2 Qualified Code(s): E11.621 - Type 2 diabetes mellitus with foot ulcer; L97.509 - Non-pressure chronic ulcer of other part of unspecified foot with unspecified severity; Z79.4 - intermediate (current) use of insulin Code(s): E11.9 - Type 2 diabetes mellitus without complications Status: Acute Assessment and Plan: Controlled IDDM with hgb A1C of 6.7. Glucose of low 100's this morning. Currently on sliding scale insulin and Lantus, continue management per Hospitalist. (3) History of hypertension: Code(s): Z86.79 - Personal history of other diseases of the circulatory system Status: Acute Plan I have discussed the patient's case and plan of care with Dr. Hoover. Subjective Subjective Date/Time Seen: 03/22/22 14:00 Patient reports: no new complaints, feels better and afebrile Interval history: This is a 66 year-old male with controlled diabetes mellitus who had a callus of his distal right 2nd toe that was removed by his a few weeks ago and began to notice redness and swelling of his right 2nd toe 4 days ago. He was seen in the ER on 03/18/22 and prescribed Bactrim and cephalexin and discharged home. His redness and swelling began to extend down his right foot and he presented back to the ER on 03/20/22. He was admitted for an infected right 2nd toe wound and further work-up. He underwent bedside excisional debridement by Dr. Hoover yesterday. Chart reviewed. Patient seen and examined. He reports feeling better today. He reports overnight and into this morning his swelling and redness in his right foot has improved. He also reports some discomfort in the right second toe, which seems to have improved slightly as well. No other complaints at this time. Has been tolerating his diet. Review of Systems Review of Systems: All systems reviewed & are unremarkable except as noted in HPI and below Exam Const: General: comfortable and no acute distress Nutritional Appearance: average body habitus Orientation/consciousness: patient oriented x3 Extrem: Right lower extremity: foot Details: toes with normal ROM, edema Location: of another digit (erythema and edema of 2nd right toe) Location: the 2nd digit and vascular exam Details: dorsalis pedis pulse present, posterior tibial pulse present and normal capillary refill Left lower extremity: normal to inspection Other: Small pinpoint open wound at the distal aspect of the right 2nd toe that probes to bone with moderate amount of serous drainage on dressing prior t
[2022-03-22 16:37] LABS: Glucose Point of Care 128 mg/dl (65-105)
[2022-03-22] MEDS: ENOXAPARIN 40 MG/0.4 ML SYRINGE SUB-Q (17:29)
[2022-03-22] MEDS: FENOFIBRATE 160 MG TABLET BY MOUTH (17:30)
[2022-03-22] MEDS: amLODIPine BESYLATE 5 MG TABLET 10 MG BY MOUTH (17:30)
[2022-03-22] MEDS: METOPROLOL SUCCINATE EXT REL 50 MG TABCR PO (17:31)
[2022-03-22] MEDS: METOPROLOL SUCCINATE EXT REL 100 MG TABCR 200 MG PO (17:31)
[2022-03-22] MEDS: MELATONIN 5 MG TABLET PO (20:18)
[2022-03-22] MEDS: LOSARTAN POTASSIUM 100 MG TABLET PO (20:18)
[2022-03-22] MEDS: ROSUVASTATIN 10 MG TABLET PO (20:18)
[2022-03-23 03:26] VITALS: BP 121/57; PULSE 75; RESP 16; TEMP 36.3; O2SAT 98
[2022-03-23 05:55] LABS: Basophils Percent Auto 0.9 % (0.2-1.2); Hematocrit 34.1 % (42.0-52.0); Hemoglobin 11.3 g/dL (14.0-18.0); Immature Granulocyte Absolute 0.02 K/mm3 (0.00-0.031); Immature Granulocyte Percent A 0.5 % (0-0.5); Lymphocytes Absolute Auto 0.87 K/mm3 (0.9-3.2); Lymphocytes Percent Auto 20.4 % (18.3-44.2); Mean Corpuscular HGB Conc 33.1 g/dl (32-36); Mean Corpuscular Hemoglobin 27.6 pg (26-34); Mean Corpuscular Volume 83.4 fl (80-100); Mean Platelet Volume 8.7 fl (7.4-10.4); Monocytes Absolute Auto 0.6 K/mm3 (0.1-0.6); Monocytes Percent Auto 12.9 % (2.6-8.5); Neutrophils Absolute Auto 2.8 K/mm3 (1.3-6.7); Neutrophils Percent Auto 65.3 % (45.5-73.1); Platelet Count Result 250 k/mm3 (150-375); Red Blood Count 4.09 M/mm3 (4.6-6.20); Red Cell Distribution Width 13.9 % (11.5-14.5); White Blood Count 4.3 K/mm3 (4.5-10.0)
[2022-03-23] MEDS: LEVOTHYROXINE SODIUM 100 MCG TABLET 200 MCG PO (05:59)
[2022-03-23 06:04] LABS: Anion Gap 7 mmol/L (8-16); Blood Urea Nitrogen 19 mg/dL (9-20); CRP 1.3 mg/dL (<1.0); Calcium 8.7 mg/dL (8.4-10.2); Carbon Dioxide 24 mmol/L (22-30); Chloride 108 mmol/L (98-107); Estimated CRCL calculation 71 ml/min; Estimated Glomerular Filt Rate > 60; Glucose 120 mg/dL (65-110); Sodium 139 mmol/L (137-145)
--- NOTE | 2022-03-23 07:33 | PM.IMPN ---
Progress Note: A&P Assessment and Plan (1) Open toe wound: Code(s): S91.109A - Unspecified open wound of unspecified toe(s) without damage to nail, initial encounter Status: Acute Assessment and Plan: Hx DM w/ neuropathy. No hx of nonhealing ulcers in the past, so unsure if there could be gangrene. No signs of acute limb ischemia. ESR & CRP elevated. Afebrile but tachycardic on presentation. Lactic acid elevated to 2.3-->1LNS--> down to 1.4. XR right 2nd toe w/ destruction of tuft of distal phalanx with surrounding soft tissue swelling concerning for osteomyelitis. No crepitus on exam & LRINEC score 2 points, less likely NSTI. Could have some surrounding cellulitis as well. Also recent abx use of cephalexin and bactrim ds without improvement. A1C not significantly elevated. MRI showing no osteomyelitis. Wound culture with pansensitive staphylococcus areus. Patient appears to be clinically stable. -Discontinue imipenem and vancomycin -Start levofloxacin 750 mg daily tomorrow -Appreciate recommendations from Surgery -Appreciate recommendations from orthopedic surgery (2) Anemia: Code(s): D64.9 - Anemia, unspecified Status: Acute Assessment and Plan: Vitamin b12 and folate are normal. Iron studies consistent with iron deficiency anemia. -Ferrous gluconate 324 mg po q48h (3) Decreased GFR: Code(s): R94.4 - Abnormal results of kidney function studies Status: Acute Assessment and Plan: Baseline creatinine appears to be ~1.00 per record review via historical link. Fena intrinsic and microalbumin creatinine ratio elevated. Renal ultrasound notes normal kidneys w/ no hydronephrosis. Creatinine back to baseline. Will need follow up outpatient. (4) History of thyroid cancer: Code(s): Z85.850 - Personal history of malignant neoplasm of thyroid Status: Acute Assessment and Plan: 2019 s/p thyroidectomy w/ radical neck dissection with acquired hypothyroidism. Takes levothyroxine at home. Continue. (5) History of diabetes mellitus: Onset Date: ~09/2017 Code(s): Z86.39 - Personal history of other endocrine, nutritional and metabolic disease Status: Acute Assessment and Plan: Reports last a1c 6.3 but significant hyperglycemia on presentation to ED but this can be acutely worsened in infection. a1c 6.7. -Continue home glargine 65 units qhs for now -Hold home metformin and semaglutide for now -High dose SSI w/ POC glucose TIDWM (6) History of hyperlipidemia: Code(s): Z86.39 - Personal history of other endocrine, nutritional and metabolic disease Status: Acute Assessment and Plan: Takes rosuvastatin at home. Continue. (7) History of hypertension: Code(s): Z86.79 - Personal history of other diseases of the circulatory system Status: Acute Assessment and Plan: On losartan and amlodipine at home. Controlled. Will monitor. (8) Diabetes mellitus: Qualifiers: Diabetes mellitus complication detail: with foot ulcer Diabetes mellitus complication status: with skin complications Diabetes mellitus fdc insulin use: with long wall shear operator use Diabetes mellitus type: type 2 Qualified Code(s): E11.621 - Type 2 diabetes mellitus with foot ulcer; L97.509 - Non-pressure chronic ulcer of other part of unspecified foot with unspecified severity; Z79.4 - manager terminal (current) use of insulin Code(s): E11.9 - Type 2 diabetes mellitus without complications Status: Acute Assessment and Plan: Continue losartan, rosuvastatin and home glargine dose. Hold metformin and semaglutide. A1C 6.7. -POC glucose check TIDWM -High dose SSI -Glargine 65 units qhs -CUSTODIAL diet (9) Left renal mass: Code(s): N28.89 - Other specified disorders of kidney and ureter Status: Acute Assessment and Plan: Noted on renal ultrasound 1.8 cm x 1.9 cm h
[2022-03-23 07:47] LABS: Glucose Point of Care 129 mg/dl (65-105)
[2022-03-23] MEDS: VITAMIN B COMPLEX CAPSULE 1 CAP PO (08:24)
[2022-03-23] MEDS: hydroCHLOROthiazide 25 MG TABLET PO (08:24)
[2022-03-23] MEDS: THERAPEUTIC MULTIVITAMINS/MINERALS TAB (*BKC) 1 TABLET PO (08:24)
[2022-03-23] MEDS: FERROUS GLUCONATE 324 MG TABLET PO (08:24)
[2022-03-23] MEDS: ASPIRIN 81 MG CHEWABLE TABLET PO (08:24)
[2022-03-23] MEDS: CHOLECALCIFEROL 1,000 UNITS TABLET 5000 UNITS PO (08:24)
[2022-03-23] MEDS: INSULIN GLARGINE (*BKC) 100 UNITS/ML 65 UNITS SUB-Q (08:25)
[2022-03-23] MEDS: SILVERGEL (ELTA) 45 ML 1 APPLIC TOPICAL (08:26)
[2022-03-23 08:46] LABS: Erythrocyte Sedimentation Rate 80 mm/hr (0-20)
--- NOTE | 2022-03-23 09:15 | PM.CNOR ---
Assessment and Plan Assessment and plan (1) Osteomyelitis: Qualifiers: Laterality: right Osteomyelitis location: foot Osteomyelitis type: unspecified type Qualified Code(s): M86.9 - Osteomyelitis, unspecified <PRANAV ZavalaP - Last Filed: 03/23/22 09:56> Code(s): M86.9 - Osteomyelitis, unspecified <Dianna Delgado [facility] - Last Filed: 03/23/22 09:56> Status: Acute <Dianna Delgado [facility] - Last Filed: 03/23/22 09:56> Assessment and Plan: History, exam, radiographs, ABIs and MRI reviewed with the patient in depth. ABIs with no significant arterial occlusive disease to the RLE, with normal JENNIE and TBI. MRI of the right foot reveals bone marrow edema of the second distal phalanx with erosions consistent with osteomyelitis. Wound cultures with Staphylococcus aureus. Condition, nature, etiology and course of natural history discussed. Conservative and operative treatment options reviewed as well as the risks and benefits of both. Discussed surgical treatment with 2nd ray amputation, patient declines. He would like to trial conservative treatment with IV antibiotics. He does also mention plans to possibly see a candy maker that is was already scheduled with in [place] for a second opinion. Would recommend post op shoe and daily dressing changes. WBAT. Avoid forefoot pressure. Will consult wound care nurses for home dressing change recommendations. Thank you for allowing us to assist in the care of this patient. We are happy to assist in the future if the patient fails to improve with IV antibiotics and is requiring surgical intervention. <Dianna Delgado [facility] - Last Filed: 03/23/22 09:56> (2) Diabetes mellitus: Qualifiers: Diabetes mellitus complication detail: with foot ulcer Diabetes mellitus complication status: with skin complications Diabetes mellitus terminal operations supervisor insulin use: with fpc use Diabetes mellitus type: type 2 Qualified Code(s): E11.621 - Type 2 diabetes mellitus with foot ulcer; L97.509 - Non-pressure chronic ulcer of other part of unspecified foot with unspecified severity; Z79.4 - intermediate (current) use of insulin <Dianna Delgado [employer] - Last Filed: 03/23/22 09:56> Code(s): E11.9 - Type 2 diabetes mellitus without complications <Dianna GhazalaFELECIA Lopez - Last Filed: 03/23/22 09:56> Status: Acute <Dianna Delgado [employer] - Last Filed: 03/23/22 09:56> (3) Neuropathy: Code(s): G62.9 - Polyneuropathy, unspecified <Dianna GhazalaFELECIA Lopez - Last Filed: 03/23/22 09:56> Status: Acute <Dianna Webbphilippe [employer] - Last Filed: 03/23/22 09:56> Assessment and Plan: Reviewed imaging, labs and cultures with attending MD and consulted surgeon, Dr. Kofi Mai. Dr. Mai present for assessment of patient. Agrees with current plan of care. Patient may follow up with the orthopedic service as needed or for failure to improve with IV antibiotics. <DiannaFELECIA House - Last Filed: 03/23/22 09:56> Additional Plan Patient seen and examined. Chart reviewed. Ulcer with osteo distal phalanx 2nd toe. Diabetic neuropathy. Operative and non operative treatment options reviewed with expected chance for healing with each. Patient has declined operative treatment at this time. Would like to start with a course of IV antibiotics. Patient or Care team to notify office if no improvement after antibiotics. <Kofi Mai MD - Last Filed: 03/23/22 10:01> History of Present Illness HPI Consult date: 03/23/22 <FELECIA Zavala - Last Filed: 03/23/22 09:56> 03/23/22 <Kofi Mai MD - Last Filed: 03/23/22 10:01> Chief complaint: Diabetic Toe Infection, Osteomyelitis <DiannaFELECIA Winn - Last Filed: 03/23/22 09:56> Narrative: 66 year old male initially present to [facility] ED on 03/18 with concerns of a red/swollen toe. His had attempted to file down a callus on the plantar aspect of the 2nd toe of the right foot.
[2022-03-23 09:55] VITALS: BP 126/68; PULSE 85; RESP 16; TEMP 36.4; O2SAT 98
[2022-03-23 11:44] LABS: Glucose Point of Care 118 mg/dl (65-105)
[2022-03-23 13:23] LABS: Vancomycin Trough 10.7 ug/mL (10.0-20.0)
[2022-03-23 14:45] VITALS: BP 137/65; PULSE 78; RESP 14; TEMP 36.4; O2SAT 99
--- NOTE | 2022-03-23 15:01 | PM.PNGS ---
Progress Note: A&P Assessment and Plan (1) Open toe wound: Code(s): S91.109A - Unspecified open wound of unspecified toe(s) without damage to nail, initial encounter Status: Acute Assessment and Plan: Infected right 2nd toe wound s/p bedside debridement. This does probe to bone. Wound care was consulted. Wound cultures showing growth of staphylococcus aureus. Evidence of osteomyelitis on MRI of right 2nd distal phalanx. Orthopedic consultation noted, appreciate their recommendations. Patient refused amputation and would like to proceed with a trial of IV antibiotics. Discussed with the Hospitalist, recommend getting a PICC line for 6 weeks of IV antibiotics. Continue local wound care with silver gel dressing changes. Since there is no plan for surgical intervention from our standpoint, we will sign off. Please let us know if you have any questions. -- Patient can follow-up with his PCP or Podiatry for further wound care and monitoring. If he has failure of antibiotic therapy, then we would recommend scheduling a follow-up with Orthopedics to discuss further surgical options. (2) Diabetes mellitus: Qualifiers: Diabetes mellitus complication detail: with foot ulcer Diabetes mellitus complication status: with skin complications Diabetes mellitus senior care insulin use: with senior care use Diabetes mellitus type: type 2 Qualified Code(s): E11.621 - Type 2 diabetes mellitus with foot ulcer; L97.509 - Non-pressure chronic ulcer of other part of unspecified foot with unspecified severity; Z79.4 - skilled nursing (current) use of insulin Code(s): E11.9 - Type 2 diabetes mellitus without complications Status: Acute Assessment and Plan: Continue management per hospitalist. (3) History of hypertension: Code(s): Z86.79 - Personal history of other diseases of the circulatory system Status: Acute (4) Osteomyelitis: Qualifiers: Laterality: right Osteomyelitis location: foot Osteomyelitis type: unspecified type Qualified Code(s): M86.9 - Osteomyelitis, unspecified Code(s): M86.9 - Osteomyelitis, unspecified Status: Acute Plan I have discussed the patient's case and plan of care with Dr. Hoover. Subjective Subjective Date/Time Seen: 03/23/22 11:01 Patient reports: no new complaints, feels better and afebrile Interval history: Patient seen and examined. Reports his right foot swelling and redness continues to improve. No complaints of pain today. Review of Systems Review of Systems: All systems reviewed & are unremarkable except as noted in HPI and below Exam Const: General: comfortable and awake Orientation/consciousness: patient oriented x3 Extrem: Right lower extremity: foot Details: toes with normal ROM and vascular exam Details: dorsalis pedis pulse present, posterior tibial pulse present and normal capillary refill; no edema Other: Small pinpoint open wound at the distal aspect of the right 2nd toe that probes to bone with scant amount of serous drainage on dressing prior to removing. Erythema and swelling of right second toe continues to improve. Objective Data Vital Signs Vital Signs: Vital Signs - 24 hr 03/22/22 17:31 03/22/22 17:31 03/22/22 16:00 Temperature 97.7 F Pulse Rate 76 76 78 Respiratory Rate 18 Blood Pressure 130/60 Pulse Oximetry 100 Oxygen Delivery 03/22/22 19:53 03/22/22 23:14 03/23/22 03:26 Temperature 97.6 F 97.3 F L 97.3 F L Pulse Rate 86 73 75 Respiratory Rate 12 16 16 Blood Pressure 128/70 112/59 L 121/57 L Pulse Oximetry 99 100 98 Oxygen Delivery 03/23/22 08:00 03/23/22 09:55 03/23/22 14:45 Temperature 97.6 F 97.6 F Pulse Rate 85 78 Respiratory Rate 16 14 Blood Pressure 126/68 137/65 Pulse Oximetry 98 99 Oxygen Delivery Room Air Intake/Output Intake/Output: Intake & Output 03/20/22 03/21/22 03/22/22 03/23/22 23:59 23:59 23:59 23:59 Intake Total 2250 2870 3964 1310 Outp
[2022-03-23 16:36] LABS: Glucose Point of Care 170 mg/dl (65-105)
[2022-03-23 17:24] VITALS: PULSE 82
[2022-03-23] MEDS: METOPROLOL SUCCINATE EXT REL 50 MG TABCR PO (17:24)
[2022-03-23] MEDS: METOPROLOL SUCCINATE EXT REL 100 MG TABCR 200 MG PO (17:24)
[2022-03-23] MEDS: amLODIPine BESYLATE 5 MG TABLET 10 MG BY MOUTH (17:24)
[2022-03-23] MEDS: ENOXAPARIN 40 MG/0.4 ML SYRINGE SUB-Q (17:24)
[2022-03-23] MEDS: FENOFIBRATE 160 MG TABLET BY MOUTH (17:25)
[2022-03-23 18:20] VITALS: BP 134/65; PULSE 80; RESP 14; TEMP 36.4; O2SAT 96
[2022-03-23 20:26] LABS: Glucose Point of Care 145 mg/dl (65-105)
[2022-03-23 20:45] VITALS: BP 120/70; PULSE 75; RESP 18; TEMP 36.7; O2SAT 99
[2022-03-23] MEDS: ROSUVASTATIN 10 MG TABLET PO (21:14)
[2022-03-23] MEDS: LOSARTAN POTASSIUM 100 MG TABLET PO (21:14)
[2022-03-23] MEDS: MELATONIN 5 MG TABLET PO (21:18)
[2022-03-23] MEDS: LACTATED RINGERS 1,000 ML 100 ML IV CONT (21:18)
[2022-03-24] VITALS (8 sets, daily range): BP systolic 118–144; BP diastolic 58–68; PULSE 71–84; RESP 16–22; TEMP 36.2–36.8; O2SAT 98–100
[2022-03-24] MEDS: LEVOTHYROXINE SODIUM 100 MCG TABLET 200 MCG PO (05:47)
[2022-03-24 06:02] LABS: Eosinophils Percent Auto 0.3 % (0-4.4); Hematocrit 36.1 % (42.0-52.0); Hemoglobin 11.1 g/dL (14.0-18.0); Immature Granulocyte Absolute 0.01 K/mm3 (0.00-0.031); Immature Granulocyte Percent A 0.3 % (0-0.5); Lymphocytes Absolute Auto 0.94 K/mm3 (0.9-3.2); Lymphocytes Percent Auto 24.6 % (18.3-44.2); Mean Corpuscular HGB Conc 30.7 g/dl (32-36); Mean Corpuscular Hemoglobin 27.5 pg (26-34); Mean Corpuscular Volume 89.6 fl (80-100); Mean Platelet Volume 8.9 fl (7.4-10.4); Monocytes Absolute Auto 0.4 K/mm3 (0.1-0.6); Monocytes Percent Auto 11.3 % (2.6-8.5); Neutrophils Absolute Auto 2.4 K/mm3 (1.3-6.7); Neutrophils Percent Auto 62.5 % (45.5-73.1); Platelet Count Result 233 k/mm3 (150-375); Red Blood Count 4.03 M/mm3 (4.6-6.20); Red Cell Distribution Width 14.2 % (11.5-14.5); White Blood Count 3.8 K/mm3 (4.5-10.0)
[2022-03-24 06:21] LABS: Anion Gap 6 mmol/L (8-16); Blood Urea Nitrogen 18 mg/dL (9-20); Calcium 9.3 mg/dL (8.4-10.2); Carbon Dioxide 26 mmol/L (22-30); Chloride 108 mmol/L (98-107); Estimated CRCL calculation 71 ml/min; Estimated Glomerular Filt Rate > 60; Glucose 100 mg/dL (65-110); Potassium 4.2 mmol/L (3.4-5.0); Sodium 140 mmol/L (137-145)
[2022-03-24] MEDS: SILVERGEL (ELTA) 45 ML 1 APPLIC TOPICAL (07:00)
[2022-03-24 07:42] LABS: Glucose Point of Care 112 mg/dl (65-105)
--- NOTE | 2022-03-24 07:43 | PM.IMPN ---
Progress Note: A&P Assessment and Plan (1) Open toe wound: Code(s): S91.109A - Unspecified open wound of unspecified toe(s) without damage to nail, initial encounter Status: Acute Assessment and Plan: Hx DM w/ neuropathy. No hx of nonhealing ulcers in the past, so unsure if there could be gangrene. No signs of acute limb ischemia. ESR & CRP elevated. Afebrile but tachycardic on presentation. Lactic acid elevated to 2.3-->1LNS--> down to 1.4. XR right 2nd toe w/ destruction of tuft of distal phalanx with surrounding soft tissue swelling concerning for osteomyelitis. No crepitus on exam & LRINEC score 2 points, less likely NSTI. Could have some surrounding cellulitis as well. Also recent abx use of cephalexin and bactrim ds without improvement. A1C not significantly elevated. MRI showing no osteomyelitis. Wound culture with pansensitive staphylococcus aureus. Patient appears to be clinically stable. -Continue Levofloxacin through May 02 -Will get EKG in AM after 2nd dose -Appreciate recommendations from Surgery -Appreciate recommendations from orthopedic surgery (2) Anemia: Code(s): D64.9 - Anemia, unspecified Status: Acute Assessment and Plan: Vitamin b12 and folate are normal. Iron studies consistent with iron deficiency anemia. -Ferrous gluconate 324 mg po q48h (3) Decreased GFR: Code(s): R94.4 - Abnormal results of kidney function studies Status: Acute Assessment and Plan: Baseline creatinine appears to be ~1.00 per record review via historical link. Fena intrinsic and microalbumin creatinine ratio elevated. Renal ultrasound notes normal kidneys w/ no hydronephrosis. Creatinine back to baseline. Will need follow up outpatient. (4) History of thyroid cancer: Code(s): Z85.850 - Personal history of malignant neoplasm of thyroid Status: Acute Assessment and Plan: 2019 s/p thyroidectomy w/ radical neck dissection with acquired hypothyroidism. Takes levothyroxine at home. Continue. (5) History of diabetes mellitus: Onset Date: ~09/2017 Code(s): Z86.39 - Personal history of other endocrine, nutritional and metabolic disease Status: Acute Assessment and Plan: Reports last a1c 6.3 but significant hyperglycemia on presentation to ED but this can be acutely worsened in infection. a1c 6.7. -Continue home glargine 65 units qhs for now -Hold home metformin and semaglutide for now -High dose SSI w/ POC glucose TIDWM (6) History of hyperlipidemia: Code(s): Z86.39 - Personal history of other endocrine, nutritional and metabolic disease Status: Acute Assessment and Plan: Takes rosuvastatin at home. Continue. (7) History of hypertension: Code(s): Z86.79 - Personal history of other diseases of the circulatory system Status: Acute Assessment and Plan: On losartan and amlodipine at home. Controlled. Will monitor. 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 Hold metformin and semaglutide. A1C 6.7. -POC glucose check TIDWM -High dose SSI -Glargine 65 units qhs -[facility] diet (9) Left renal mass: Code(s): N28.89 - Other specified disorders of kidney and ureter Status: Acute Assessment and Plan: Noted on renal ultrasound 1.8 cm x 1.9 cm hy
[2022-03-24] MEDS: hydroCHLOROthiazide 25 MG TABLET PO (09:03)
[2022-03-24] MEDS: THERAPEUTIC MULTIVITAMINS/MINERALS TAB (*BKC) 1 TABLET PO (09:04)
[2022-03-24] MEDS: CHOLECALCIFEROL 1,000 UNITS TABLET 5000 UNITS PO (09:04)
[2022-03-24] MEDS: ASPIRIN 81 MG CHEWABLE TABLET PO (09:04)
[2022-03-24] MEDS: VITAMIN B COMPLEX CAPSULE 1 CAP PO (09:04)
[2022-03-24] MEDS: INSULIN GLARGINE (*BKC) 100 UNITS/ML 65 UNITS SUB-Q (09:06)
[2022-03-24 11:38] LABS: Glucose Point of Care 105 mg/dl (65-105)
[2022-03-24 16:31] LABS: Glucose Point of Care 105 mg/dl (65-105)
[2022-03-24] MEDS: ENOXAPARIN 40 MG/0.4 ML SYRINGE SUB-Q (17:13)
[2022-03-24] MEDS: METOPROLOL SUCCINATE EXT REL 100 MG TABCR 200 MG PO (17:14)
[2022-03-24] MEDS: amLODIPine BESYLATE 5 MG TABLET 10 MG BY MOUTH (17:14)
[2022-03-24] MEDS: METOPROLOL SUCCINATE EXT REL 50 MG TABCR PO (17:15)
[2022-03-24] MEDS: FENOFIBRATE 160 MG TABLET BY MOUTH (17:16)
[2022-03-24] MEDS: ROSUVASTATIN 10 MG TABLET PO (20:42)
[2022-03-24] MEDS: LOSARTAN POTASSIUM 100 MG TABLET PO (20:42)
[2022-03-24] MEDS: MELATONIN 5 MG TABLET PO (20:48)
[2022-03-25] VITALS (7 sets, daily range): BP systolic 117–136; BP diastolic 64–76; PULSE 62–87; RESP 20–21; TEMP 36.1–36.7; O2SAT 99–100
[2022-03-25 01:44] LABS: Glucose Point of Care 103 mg/dl (65-105)
[2022-03-25 05:28] LABS: Basophils Percent Auto 0.8 % (0.2-1.2); Hematocrit 35.7 % (42.0-52.0); Hemoglobin 11.9 g/dL (14.0-18.0); Immature Granulocyte Absolute 0.02 K/mm3 (0.00-0.031); Immature Granulocyte Percent A 0.4 % (0-0.5); Lymphocytes Absolute Auto 1.09 K/mm3 (0.9-3.2); Lymphocytes Percent Auto 21.8 % (18.3-44.2); Mean Corpuscular HGB Conc 33.3 g/dl (32-36); Mean Corpuscular Hemoglobin 27.6 pg (26-34); Mean Corpuscular Volume 82.8 fl (80-100); Mean Platelet Volume 8.4 fl (7.4-10.4); Monocytes Absolute Auto 0.6 K/mm3 (0.1-0.6); Monocytes Percent Auto 11.4 % (2.6-8.5); Neutrophils Absolute Auto 3.3 K/mm3 (1.3-6.7); Neutrophils Percent Auto 65.6 % (45.5-73.1); Platelet Count Result 283 k/mm3 (150-375); Red Blood Count 4.31 M/mm3 (4.6-6.20); Red Cell Distribution Width 14.1 % (11.5-14.5)
[2022-03-25 05:40] LABS: Anion Gap 7 mmol/L (8-16); Blood Urea Nitrogen 20 mg/dL (9-20); CRP < 0.5 mg/dL (<1.0); Calcium 9.3 mg/dL (8.4-10.2); Carbon Dioxide 27 mmol/L (22-30); Chloride 107 mmol/L (98-107); Estimated CRCL calculation 65 ml/min; Estimated Glomerular Filt Rate > 60; Glucose 89 mg/dL (65-110); Potassium 3.7 mmol/L (3.4-5.0); Sodium 141 mmol/L (137-145)
[2022-03-25] MEDS: LEVOTHYROXINE SODIUM 100 MCG TABLET 200 MCG PO (05:49)
[2022-03-25 06:50] LABS: Erythrocyte Sedimentation Rate 75 mm/hr (0-20)
[2022-03-25 07:37] LABS: Glucose Point of Care 79 mg/dl (65-105)
[2022-03-25] MEDS: hydroCHLOROthiazide 25 MG TABLET PO (07:48)
[2022-03-25] MEDS: VITAMIN B COMPLEX CAPSULE 1 CAP PO (07:48)
[2022-03-25] MEDS: CHOLECALCIFEROL 1,000 UNITS TABLET 5000 UNITS PO (07:48)
[2022-03-25] MEDS: FERROUS GLUCONATE 324 MG TABLET PO (07:48)
[2022-03-25] MEDS: THERAPEUTIC MULTIVITAMINS/MINERALS TAB (*BKC) 1 TABLET PO (07:48)
[2022-03-25] MEDS: ASPIRIN 81 MG CHEWABLE TABLET PO (07:48)
[2022-03-25] MEDS: INSULIN GLARGINE (*BKC) 100 UNITS/ML 65 UNITS SUB-Q (07:50)
--- NOTE | 2022-03-25 10:00 | ECG_ITS ---
Measurements Intervals [place] Rate: 75 P: 12 FL: 165 QRS: 74 QRSD: 154 T: 35 QT: 428 QTc: 480 Interpretive Statements SINUS RHYTHM RIGHT BUNDLE BRANCH BLOCK ABNORMAL ECG Electronically Signed On 03-25-2022 16:14:32 CDT by Guzman Schuler D.O.
[2022-03-25 11:41] LABS: Glucose Point of Care 99 mg/dl (65-105)
[2022-03-25] MEDS: OXACILLIN SODIUM 2 GM in SODIUM CHLORIDE 0.9% IV 100 ML IVPB ×2 (13:27→16:58)
[2022-03-25] MEDS: SILVERGEL (ELTA) 45 ML 1 APPLIC TOPICAL (13:31)
--- NOTE | 2022-03-25 15:09 | PM.DS ---
DS: Admitting Diagnosis Discharge Date 03/25/22 Admitting Diagnosis Right foot 2nd toe wound DS: Discharge Diagnosis Discharge Diagnosis (1) Open toe wound: Code(s): S91.109A - Unspecified open wound of unspecified toe(s) without damage to nail, initial encounter Status: Acute Assessment and Plan: Hx DM w/ neuropathy. No hx of nonhealing ulcers in the past, so unsure if there could be gangrene. No signs of acute limb ischemia. ESR & CRP elevated. Afebrile but tachycardic on presentation. Lactic acid elevated to 2.3-->1LNS--> down to 1.4. XR right 2nd toe w/ destruction of tuft of distal phalanx with surrounding soft tissue swelling concerning for osteomyelitis. No crepitus on exam & LRINEC score 2 points, less likely NSTI. Could have some surrounding cellulitis as well. Also recent abx use of cephalexin and bactrim ds without improvement. A1C not significantly elevated. MRI showing no osteomyelitis. Wound culture with pansensitive staphylococcus aureus. Patient had significant qt prolongation with levofloxacin, so it was discontinued. -Oxacillin 2g q4h (12g q24h) through May 02 -Appreciate recommendations from Surgery -Appreciate recommendations from orthopedic surgery (2) Anemia: Code(s): D64.9 - Anemia, unspecified Status: Acute Assessment and Plan: Vitamin b12 and folate are normal. Iron studies consistent with iron deficiency anemia. -Ferrous gluconate 324 mg po q48h (3) Decreased GFR: Code(s): R94.4 - Abnormal results of kidney function studies Status: Acute Assessment and Plan: Baseline creatinine appears to be ~1.00 per record review via historical link. Fena intrinsic and microalbumin creatinine ratio elevated. Renal ultrasound notes normal kidneys w/ no hydronephrosis. Creatinine back to baseline. Will need follow up outpatient. (4) History of thyroid cancer: Code(s): Z85.850 - Personal history of malignant neoplasm of thyroid Status: Acute Assessment and Plan: 2019 s/p thyroidectomy w/ radical neck dissection with acquired hypothyroidism. Takes levothyroxine at home. Continue. (5) History of diabetes mellitus: Onset Date: ~09/2017 Code(s): Z86.39 - Personal history of other endocrine, nutritional and metabolic disease Status: Acute Assessment and Plan: Reports last a1c 6.3 but significant hyperglycemia on presentation to ED but this can be acutely worsened in infection. a1c 6.7. Will resume home semaglutide and metformin for discharge. (6) History of hyperlipidemia: Code(s): Z86.39 - Personal history of other endocrine, nutritional and metabolic disease Status: Acute Assessment and Plan: Takes rosuvastatin at home. Continue. (7) History of hypertension: Code(s): Z86.79 - Personal history of other diseases of the circulatory system Status: Acute Assessment and Plan: On losartan and amlodipine at home. Controlled. Will monitor. (8) Diabetes mellitus: Qualifiers: Diabetes mellitus complication detail: with foot ulcer Diabetes mellitus complication status: with skin complications Diabetes mellitus long term care phlebotomist insulin use: with fpc use Diabetes mellitus type: type 2 Qualified Code(s): E11.621 - Type 2 diabetes mellitus with foot ulcer; L97.509 - Non-pressure chronic ulcer of other part of unspecified foot with unspecified severity; Z79.4 - long term care pharmacist (current) use of insulin Code(s): E11.9 - Type 2 diabetes mellitus without complications Status: Acute Assessment and Plan: Continue losartan, rosuvastatin and home glargine dose. A1C 6.7. Resume glargine, metformin and semaglutide for discharge. - (9) Left renal mass: Code(s): N28.89 - Other specified disorders of kidney and ureter Status: Acute Assessment and Plan: Noted on renal ultrasound 1.8 cm x 1.9 cm hypoechoi
--- NOTE | 2022-03-25 16:12 | PM.IMPN ---
Progress Note: A&P Assessment and Plan (1) Open toe wound: Code(s): S91.109A - Unspecified open wound of unspecified toe(s) without damage to nail, initial encounter Status: Acute Assessment and Plan: Hx DM w/ neuropathy. No hx of nonhealing ulcers in the past, so unsure if there could be gangrene. No signs of acute limb ischemia. ESR & CRP elevated. Afebrile but tachycardic on presentation. Lactic acid elevated to 2.3-->1LNS--> down to 1.4. XR right 2nd toe w/ destruction of tuft of distal phalanx with surrounding soft tissue swelling concerning for osteomyelitis. No crepitus on exam & LRINEC score 2 points, less likely NSTI. Could have some surrounding cellulitis as well. Also recent abx use of cephalexin and bactrim ds without improvement. A1C not significantly elevated. MRI showing no osteomyelitis. Wound culture with pansensitive staphylococcus aureus. Patient had significant qt prolongation with levofloxacin, so it was discontinued. Oxacillin given today. Will discuss patient again with ID pharmacist and change antibiotics. discharge was held overnight. -Appreciate recommendations from Surgery -Appreciate recommendations from orthopedic surgery -CBC, CMP, ESR, CRP ordered weekly to be collected by home health A significant amount of time, >2 hours, was spent attempting to coordinate discharge. Spoke with patient PCP office and eventually spoke with patient PCP who had significant concerns regarding treatment without patient being followed by infectious disease. This hospital does not have an infectious disease physician. The patient has been scheduled for outpatient follow up with ID, but due to staffing shortage and that the patient will be establishing care, no appointment was available until May. Transfer to another hospital was discussed but at this point the patient is ready for discharge and it will be extremely difficult to get a bed transfer to another hospital. Also, the consulting orthopedic surgeon was called and asked to follow up with the patient. The orthopedic surgeon did not respond to this request. (2) Anemia: Code(s): D64.9 - Anemia, unspecified Status: Acute Assessment and Plan: Vitamin b12 and folate are normal. Iron studies consistent with iron deficiency anemia. -Ferrous gluconate 324 mg po q48h (3) Decreased GFR: Code(s): R94.4 - Abnormal results of kidney function studies Status: Acute Assessment and Plan: Baseline creatinine appears to be ~1.00 per record review via historical link. Fena intrinsic and microalbumin creatinine ratio elevated. Renal ultrasound notes normal kidneys w/ no hydronephrosis. Creatinine back to baseline. Will need follow up outpatient. (4) History of thyroid cancer: Code(s): Z85.850 - Personal history of malignant neoplasm of thyroid Status: Acute Assessment and Plan: 2019 s/p thyroidectomy w/ radical neck dissection with acquired hypothyroidism. Takes levothyroxine at home. Continue. (5) History of diabetes mellitus: Onset Date: ~09/2017 Code(s): Z86.39 - Personal history of other endocrine, nutritional and metabolic disease Status: Acute Assessment and Plan: Reports last a1c 6.3 but significant hyperglycemia on presentation to ED but this can be acutely worsened in infection. a1c 6.7. (6) History of hyperlipidemia: Code(s): Z86.39 - Personal history of other endocrine, nutritional and metabolic disease Status: Acute Assessment and Plan: Takes rosuvastatin at home. Continue. (7) History of hypertension: Code(s): Z86.79 - Personal history of other diseases of the circulatory system Status: Acute Assessment and Plan: On losartan and amlodipine at home. Controlled. Will monitor. (8) Diabetes mellitus: Qualifiers: Diabetes mellitus complication detail: with foot ul
[2022-03-25 16:33] LABS: Glucose Point of Care 121 mg/dl (65-105)
[2022-03-25] MEDS: amLODIPine BESYLATE 5 MG TABLET 10 MG BY MOUTH (17:51)
[2022-03-25] MEDS: FENOFIBRATE 160 MG TABLET BY MOUTH (17:52)
[2022-03-25] MEDS: METOPROLOL SUCCINATE EXT REL 100 MG TABCR 200 MG PO (17:52)
[2022-03-25] MEDS: METOPROLOL SUCCINATE EXT REL 50 MG TABCR PO (17:52)
[2022-03-25] MEDS: LOSARTAN POTASSIUM 100 MG TABLET PO (17:53)
[2022-03-25] MEDS: ROSUVASTATIN 10 MG TABLET PO (17:54)
[2022-03-25] MEDS: CENTRAL LINE FLUSH 10 ML IV PUSH ×4 (17:54→21:55)
[2022-03-25] MEDS: MELATONIN 5 MG TABLET PO (21:55)
[2022-03-26 01:30] VITALS: BP 129/63; PULSE 72; RESP 20; TEMP 36.3; O2SAT 99
[2022-03-26 05:22] VITALS: BP 113/55; PULSE 67; RESP 21; TEMP 36.1; O2SAT 100
[2022-03-26] MEDS: CENTRAL LINE FLUSH 10 ML IV PUSH ×2 (06:13→06:25)
[2022-03-26] MEDS: LEVOTHYROXINE SODIUM 100 MCG TABLET 200 MCG PO (06:13)
[2022-03-26 08:01] LABS: Glucose Point of Care 97 mg/dl (65-105)
[2022-03-26] MEDS: VITAMIN B COMPLEX CAPSULE 1 CAP PO (08:09)
[2022-03-26] MEDS: CHOLECALCIFEROL 1,000 UNITS TABLET 5000 UNITS PO (08:09)
[2022-03-26] MEDS: hydroCHLOROthiazide 25 MG TABLET PO (08:10)
[2022-03-26] MEDS: THERAPEUTIC MULTIVITAMINS/MINERALS TAB (*BKC) 1 TABLET PO (08:10)
[2022-03-26] MEDS: ASPIRIN 81 MG CHEWABLE TABLET PO (08:10)
[2022-03-26] MEDS: INSULIN GLARGINE (*BKC) 100 UNITS/ML 65 UNITS SUB-Q (08:11)
[2022-03-26] MEDS: DOXYCYCLINE 100 MG/NS 100 ML 100 MG/100 ML BAG IVPB (08:19)
[2022-03-26 10:35] VITALS: BP 124/57; PULSE 73; RESP 16; TEMP 36.3; O2SAT 99
--- NOTE | 2022-03-26 10:58 | PCNWS ---
Weekly nutritional screen. Patient is tolerating current diet with adequate intake. No weight loss reported. No nutritional needs at this time.
[2022-03-26 11:32] LABS: Glucose Point of Care 112 mg/dl (65-105)
[2022-03-26 14:00] VITALS: BP 126/67; PULSE 69; RESP 16; TEMP 36.4; O2SAT 100
[2022-03-26] MEDS: SILVERGEL (ELTA) 45 ML 1 APPLIC TOPICAL (16:12)
--- NOTE | 2022-03-26 16:12 | PM.DS ---
DS: Admitting Diagnosis Discharge Date 03/26/22 Admitting Diagnosis Toe wound DS: Discharge Diagnosis Discharge Diagnosis (1) Open toe wound: Code(s): S91.109A - Unspecified open wound of unspecified toe(s) without damage to nail, initial encounter Status: Acute Assessment and Plan: Hx DM w/ neuropathy. No hx of nonhealing ulcers in the past, so unsure if there could be gangrene. No signs of acute limb ischemia. ESR & CRP elevated. Afebrile but tachycardic on presentation. Lactic acid elevated to 2.3-->1LNS--> down to 1.4. XR right 2nd toe w/ destruction of tuft of distal phalanx with surrounding soft tissue swelling concerning for osteomyelitis. No crepitus on exam & LRINEC score 2 points, less likely NSTI. Could have some surrounding cellulitis as well. Also recent abx use of cephalexin and bactrim ds without improvement. A1C not significantly elevated. MRI showing no osteomyelitis. Wound culture with pansensitive staphylococcus aureus. Patient had significant qt prolongation with levofloxacin, so it was discontinued. Oxacillin was discontinued and changed to doxycycline to have better bioavailability and less side effects, so discharge was held overnight. -Doxycycline 100 mg BID through May 02 -Appreciate recommendations from Surgery -Appreciate recommendations from orthopedic surgery -CBC, CMP, ESR, CRP ordered weekly to be collected by home health (2) Anemia: Code(s): D64.9 - Anemia, unspecified Status: Acute Assessment and Plan: Vitamin b12 and folate are normal. Iron studies consistent with iron deficiency anemia. -Ferrous gluconate 324 mg po q48h (3) Decreased GFR: Code(s): R94.4 - Abnormal results of kidney function studies Status: Acute Assessment and Plan: Baseline creatinine appears to be ~1.00 per record review via historical link. Fena intrinsic and microalbumin creatinine ratio elevated. Renal ultrasound notes normal kidneys w/ no hydronephrosis. Creatinine back to baseline. Will need follow up outpatient. (4) History of thyroid cancer: Code(s): Z85.850 - Personal history of malignant neoplasm of thyroid Status: Acute Assessment and Plan: 2019 s/p thyroidectomy w/ radical neck dissection with acquired hypothyroidism. Takes levothyroxine at home. Continue. (5) History of diabetes mellitus: Onset Date: ~09/2017 Code(s): Z86.39 - Personal history of other endocrine, nutritional and metabolic disease Status: Acute Assessment and Plan: Reports last a1c 6.3 but significant hyperglycemia on presentation to ED but this can be acutely worsened in infection. a1c 6.7. Will resume home semaglutide and metformin for discharge. (6) History of hyperlipidemia: Code(s): Z86.39 - Personal history of other endocrine, nutritional and metabolic disease Status: Acute Assessment and Plan: Takes rosuvastatin at home. Continue. (7) History of hypertension: Code(s): Z86.79 - Personal history of other diseases of the circulatory system Status: Acute Assessment and Plan: On losartan and amlodipine at home. Controlled. Will monitor. (8) Diabetes mellitus: Qualifiers: Diabetes mellitus complication detail: with foot ulcer Diabetes mellitus complication status: with skin complications Diabetes mellitus rat exterminator insulin use: with snf use Diabetes mellitus type: type 2 Qualified Code(s): E11.621 - Type 2 diabetes mellitus with foot ulcer; L97.509 - Non-pressure chronic ulcer of other part of unspecified foot with unspecified severity; Z79.4 - [facility] (current) use of insulin Code(s): E11.9 - Type 2 diabetes mellitus without complications Status: Acute Assessment and Plan: Continue losartan, rosuvastatin and home glargine dose. A1C 6.7. Resume glargine, metformin and semaglutide for discharge. - (9) Le
[2022-03-26 16:39] LABS: Glucose Point of Care 112 mg/dl (65-105)
[2022-03-26] MEDS: amLODIPine BESYLATE 5 MG TABLET 10 MG BY MOUTH (17:03)
[2022-03-26] MEDS: FENOFIBRATE 160 MG TABLET BY MOUTH (17:03)
[2022-03-26 17:05] VITALS: PULSE 90
[2022-03-26] MEDS: METOPROLOL SUCCINATE EXT REL 50 MG TABCR PO (17:05)
[2022-03-26 17:06] VITALS: PULSE 90
[2022-03-26] MEDS: METOPROLOL SUCCINATE EXT REL 100 MG TABCR 200 MG PO (17:06)
== END 2022-03-26 17:30 | disposition home health service (06) | DRG 623 ==
LOC: ANHED 13:33 → ANH2MED 15:18
PROVIDERS: Physician Assistant; Admitting Provider Family Medicine; Emergency Provider Emergency Medicine; Visit Provider Family Medicine
DX: E11.69 Type 2 diabetes mellitus with other specified complication (principal); M86.171 Other acute osteomyelitis, right ankle and foot; E11.628 Type 2 diabetes mellitus with other skin complications; L03.031 Cellulitis of right toe; A49.01 Methicillin susceptible Staphylococcus aureus infection, unspecified site; E11.621 Type 2 diabetes mellitus with foot ulcer; L97.509 Non-pressure chronic ulcer of other part of unspecified foot with unspecified severity; D50.9 Iron deficiency anemia, unspecified; R94.4 Abnormal results of kidney function studies; I10 Essential (primary) hypertension; N28.1 Cyst of kidney, acquired; E11.42 Type 2 diabetes mellitus with diabetic polyneuropathy; E11.65 Type 2 diabetes mellitus with hyperglycemia; E03.8 Other specified hypothyroidism; Z96.619 Presence of unspecified artificial shoulder joint; Z79.4 Long term (current) use of insulin; Z85.850 Personal history of malignant neoplasm of thyroid
CPT/HCPCS: 36415; 36569; 73630; 73660; 73720; 74178; 76770; 80048; 80053; 80202; 81001; 82043; 82607; 82728; 82746; 82948; 83036; 83540; 83550; 83605; 84300; 84540; 85025; 85046; 85652; 86140; 87040; 87070; 87147; 87181; 87186; 87205; 93005; 93923; 93971; 96361; 96365; 96374; 99284; 99285; A9270; A9577; C1751; J0696; J0743; J1650; J1815; J1956; J2700; J3370; J7030; J7120; Q9967